=== PATIENT | male | born 1935 | race Hispanic/Latino ===

== ENCOUNTER 2022-09-01 12:16 | Outpatient (RCR) | payer MEDICARE | END 2022-09-08 | LOC: RESP 12:16 | DX: J44.1 Chronic obstructive pulmonary disease with (acute) exacerbation (principal) | CPT/HCPCS: 94799 ==

== ENCOUNTER 2022-09-09 | Outpatient (RCR) | payer MEDICARE | END 2022-10-06 23:59 | disposition home or self-care (01) | LOC: RESP | PROVIDERS: ATTEND Internal Medicine Pulmonary Disease | DX: J44.1 Chronic obstructive pulmonary disease with (acute) exacerbation (principal) | CPT/HCPCS: 94626 ×5; G0238 ×5 ==

== ENCOUNTER 2022-10-21 15:28 | Outpatient (RCR) | payer MEDICARE | END 2022-11-06 | LOC: RESP 15:28 | PROVIDERS: ATTEND Internal Medicine Pulmonary Disease | DX: J44.1 Chronic obstructive pulmonary disease with (acute) exacerbation (principal) | CPT/HCPCS: 94626 ×3; G0238 ×3 ==

== ENCOUNTER 2022-11-09 16:18 | Outpatient (RCR) | payer MEDICARE | END 2022-12-06 | LOC: RESP 16:18 | PROVIDERS: ATTEND Internal Medicine Pulmonary Disease | DX: J44.1 Chronic obstructive pulmonary disease with (acute) exacerbation (principal) | CPT/HCPCS: 94626 ×2; G0238 ×2 ==

== ENCOUNTER 2024-02-14 13:22 | Emergency (ER) | payer MEDICARE, OTHER ==
[~2024-02-14] VITALS: Ht 175.3 cm; Wt 72.6 kg
[~2024-02-14 13:22] MED LIST: AZITHROMYCIN250 MG PO
[2024-02-14 13:30] VITALS: PULSE 93; RESP 20; TEMP 98.3
[2024-02-14] MEDS: ALBUTEROL/IPRATROPIUM 3 ML NEB NEB ONE (13:56)
[2024-02-14] MEDS: DEXAMETHASONE SOD PHOS 10 MG/1 ML VIAL IM ONE (14:11)
[2024-02-14] MEDS: ALBUTEROL 90 MCG/ACT INHALER INH PRN (15:14)
[2024-02-14] MEDS ORDERED: PREDNISONE20 MG PO (15:24)
[2024-02-14 15:46] VITALS: BP 118/60; PULSE 84; RESP 20; O2SAT 96
== END 2024-02-14 15:47 | disposition home or self-care (01) ==
LOC: ER 13:37
DX: J44.1 Chronic obstructive pulmonary disease with (acute) exacerbation (principal); I10 Essential (primary) hypertension
CPT/HCPCS: 99284; J1100